=== PATIENT | female | born 1950 | race Caucasian/White ===

== ENCOUNTER 2016-10-28 20:37 | Observation (INO) | payer OTHER ==
[~2016-10-28] VITALS: Ht 160 cm; Wt 59.5 kg
[~2016-10-28 20:37] MED LIST: AMLODIPINE BESYL5 MG PO; ASPIR 8181 M1 PO; ATIVAN0.5 MG PO; B COMPLEX #11 EACH PO; BENZONATATE200 MG PO; CYMBALTA30 MG PO; CYMBALTA60 MG PO; DEXAMETHASONE4 MG PO; LASIX20 MG PO; LORAZEPAM1 MG PO; MEGESTROL ACETA40 MG PO; METOPROLOL SUCC50 MG PO; NEURONTIN100 MG PO; NORCO 5/3251 TABLET PO; NORVASC10 MG PO; PROMETHAZINE-C120 ML PO; ROWEEPRA500 MG PO; TOPROL XL100 MG PO; ULTRAM50 MG PO; VITAMIN B122500 MCG PO; WELLBUTRIN SR150 MG PO; ZOCOR10 MG PO; ZOCOR20 MG PO; ZOFRAN8 MG PO; ZUPLENZ8 MG PO; ZYBAN 150 MG T150 MG PO
[2016-10-28 23:03] LABS: CHLORIDE 100 mEq/L (99-109); HEMATOCRIT 42.6 % (36.0-46.0); MCH 30.7 PG (29.0-34.0); MCHC 34.3 G/DL (30.0-36.0); MCV 89.7 FL (83-99); MEAN PLAT.VOLUME 9.7 uM^3 (9.5-12.4); NRBC (%) 2.4 /100 WBC (0-0); PLATELET COUNT 303 K/uL (156-360); POTASSIUM 4.5 mEq/L (3.7-5.4); RBC DIS.WIDTH-CV 13.4 % (11.8-14.6); RBC DIS.WIDTH-SD 43.7 % (39-53); RED BLOOD COUNT 4.75 M/uL (3.80-5.20); SODIUM 135 mEq/L (136-147); WHITE BLOOD COUNT 1.3 K/uL (4.1-10.2)
[2016-10-28 23:05] LABS: GLUCOSE 211 mg/dL (70-99)
[2016-10-28 23:07] LABS: ANION GAP 18 MEQ/L (2-14); TOTAL BILIRUBIN 1.7 mg/dL (0.0-1.0)
[2016-10-28 23:09] LABS: ALKALINE PHOSPHATASE 99 IU/L (3-129); GFR ESTIMATE (CALCULATED) 48 mL/min/
[2016-10-28 23:10] LABS: UREA NITROGEN (BUN) 24 mg/dL (9-23)
[2016-10-28 23:12] LABS: LIPASE 3 U/L (1.0-51.0)
[2016-10-28 23:41] LABS: TROP-I INTERPRETATION NEGATIVE; TROPONIN-I 0.02 ng/mL (0.0-0.30)
[2016-10-29] MEDS ORDERED: ZOCOR20 MG PO (00:49)
[2016-10-29] MEDS ORDERED: MOVANTIK12.5 MG PO (00:52)
[2016-10-29 02:17] LABS: ADD MIUA? YES; BILIRUBIN NEGATIVE; BLOOD MODERATE; COLOR YELLOW ((YELLOW)); GLUCOSE (STRIP) 50; KETONES NEGATIVE; LEUKOCYTES NEGATIVE; NITRITE NEGATIVE; PROTEIN (STRIP) 30; SPECIFIC GRAVITY 1.008 (1.000-1.030); UROBILINOGEN 0.2 MG/DL (0.2-1.0)
[2016-10-29 02:23] LABS: BACTERIA RARE /HPF; EPITHELIAL CELLS 2+ /HPF; HYALINE CASTS 0-5 /LPF; MUCUS TRACE /LPF; UCUL ADDED? NO; WHITE BLOOD CELLS 0-5 /HPF (0-5)
[2016-10-29 07:23] VITALS: BP 114/71
[2016-10-29 08:36] LABS: ANION GAP 11 MEQ/L (2-14); CHLORIDE 108 MEQ/L (99-109); GFR ESTIMATE (CALCULATED) > 59 mL/min/; GLUCOSE 138 mg/dL (70-99); POTASSIUM 3.8 MEQ/L (3.7-5.4); SAMPLE HEMOLYSIS CHECK 0; SAMPLE ICTERIC CHECK 0; SAMPLE LIPEMIA CHECK 0; SODIUM 136 MEQ/L (136-147); UREA NITROGEN (BUN) 23 mg/dL (9-23)
[2016-10-29 11:40] VITALS: BP 116/64
[2016-10-29] MEDS ORDERED: ZOFRAN4 MG PO (14:20)
== END 2016-10-29 15:56 | disposition home or self-care (01) ==
LOC: EME 20:37 → EDOF 10-29 03:24 → 5WEST 10-29 07:18
PROVIDERS: Emergency Medicine; Nurse Practitioner Adult Health
DX: R11.2 Nausea with vomiting, unspecified (principal); R19.7 Diarrhea, unspecified; E86.0 Dehydration; D72.819 Decreased white blood cell count, unspecified; E87.2 Acidosis; T45.1X5A Adverse effect of antineoplastic and immunosuppressive drugs, initial encounter; C79.31 Secondary malignant neoplasm of brain; Z85.118 Personal history of other malignant neoplasm of bronchus and lung; I10 Essential (primary) hypertension; E78.5 Hyperlipidemia, unspecified; F41.9 Anxiety disorder, unspecified; Z87.891 Personal history of nicotine dependence
CPT/HCPCS: 71010; 80048; 80053; 81003; 83605; 83630; 83690; 84484; 85027; 87040; 87493; 93005; G0378; J1644; J2405; J7030; J8540; S0028

== ENCOUNTER 2016-11-01 08:49 | Inpatient (IN) | payer OTHER ==
[~2016-11-01] VITALS: Ht 160 cm; Wt 63.7 kg
[~2016-11-01 08:49] MED LIST changes: +MOVANTIK12.5 MG PO; +ZOFRAN4 MG PO
[2016-11-01 09:43] LABS: CHLORIDE 98 mEq/L (99-109); SODIUM 131 mEq/L (136-147)
[2016-11-01 09:45] LABS: GLUCOSE 72 mg/dL (70-99)
[2016-11-01 09:46] LABS: ANION GAP 10 MEQ/L (2-14)
[2016-11-01 09:48] LABS: ALKALINE PHOSPHATASE 70 IU/L (3-129); HEMATOCRIT 30.2 % (36.0-46.0); MCH 30.1 PG (29.0-34.0); MCHC 34.4 G/DL (30.0-36.0); MCV 87.3 FL (83-99); RBC DIS.WIDTH-CV 13.4 % (11.8-14.6); TROP-I INTERPRETATION NEGATIVE; TROPONIN-I < 0.01 ng/mL (0.0-0.30)
[2016-11-01 09:49] LABS: GFR ESTIMATE (CALCULATED) > 59 mL/min/
[2016-11-01 09:50] LABS: UREA NITROGEN (BUN) 9 mg/dL (9-23)
[2016-11-01 09:51] LABS: RED BLOOD COUNT 3.46 M/uL (3.80-5.20); WHITE BLOOD COUNT 0.8 K/uL (4.1-10.2)
[2016-11-01 09:54] LABS: TOTAL BILIRUBIN 0.7 mg/dL (0.0-1.0)
[2016-11-01 09:57] LABS: ADD MIUA? YES; BILIRUBIN NEGATIVE; BLOOD MODERATE; COLOR YELLOW ((YELLOW)); GLUCOSE (STRIP) NEGATIVE; KETONES 20; LEUKOCYTES NEGATIVE; NITRITE NEGATIVE; PROTEIN (STRIP) 100; SPECIFIC GRAVITY 1.017 (1.000-1.030); UROBILINOGEN 0.2 MG/DL (0.2-1.0)
[2016-11-01 10:03] LABS: BACTERIA RARE /HPF; CALCIUM OXALATE CRYSTALS 1+ /HPF; EPITHELIAL CELLS 2+ /HPF; GRANULAR CASTS 0-5 /LPF; HYALINE CASTS 0-5 /LPF; MUCUS TRACE /LPF; UCUL ADDED? NO; URIC ACID CRYSTALS 1+ /HPF
[2016-11-01 11:52] LABS: ABS NEUTROPHIL COUNT 0.5; EOSINOPHIL ABS CT 0; INSTRUMENT ABS NEUTROPHIL CT 0.5 K/uL; MEAN PLAT.VOLUME 10.3 uM^3 (9.5-12.4); PLAT.SUFFICIENCY DECREASED; PLATELET COUNT 128 K/uL (156-360)
[2016-11-01] MEDS ORDERED: IMODIUM A-D2 M2 PO (12:24)
[2016-11-01 17:13] LABS: C DIFF TOXIN NEGATIVE (NEGATIVE)
[2016-11-01 17:19] LABS: PROBE CHECK PASS; SPECIMEN PROCESSING CONTROL PASS
[2016-11-01 17:50] VITALS: BP 99/57
[2016-11-02] VITALS (7 sets, daily range): BP systolic 101–115; BP diastolic 59–69
[2016-11-02 06:46] LABS: HEMATOCRIT 30.5 % (36.0-46.0); MCH 30.4 PG (29.0-34.0); MCHC 34.8 G/DL (30.0-36.0); MCV 87.4 FL (83-99); MEAN PLAT.VOLUME 10.4 uM^3 (9.5-12.4); NRBC (%) 1.4 /100 WBC (0-0); PLATELET COUNT 135 K/uL (156-360); RBC DIS.WIDTH-CV 13.9 % (11.8-14.6); RBC DIS.WIDTH-SD 43.3 % (39-53); RED BLOOD COUNT 3.49 M/uL (3.80-5.20); WHITE BLOOD COUNT 2.2 K/uL (4.1-10.2)
[2016-11-02 07:05] LABS: ANION GAP 11 MEQ/L (2-14); CHLORIDE 101 MEQ/L (99-109); GFR ESTIMATE (CALCULATED) > 59 mL/min/; GLUCOSE 100 mg/dL (70-99); POTASSIUM 3.4 MEQ/L (3.7-5.4); SAMPLE HEMOLYSIS CHECK 0; SAMPLE ICTERIC CHECK 0; SAMPLE LIPEMIA CHECK 0; SODIUM 133 MEQ/L (136-147); UREA NITROGEN (BUN) 5 mg/dL (9-23)
[2016-11-03 03:50] VITALS: BP 108/63
[2016-11-03 06:52] LABS: HEMATOCRIT 32.2 % (36.0-46.0); MCH 30.4 PG (29.0-34.0); MCHC 34.8 G/DL (30.0-36.0); MCV 87.3 FL (83-99); MEAN PLAT.VOLUME 10.8 uM^3 (9.5-12.4); NRBC (%) 0.7 /100 WBC (0-0); PLATELET COUNT 152 K/uL (156-360); RBC DIS.WIDTH-CV 14.1 % (11.8-14.6); RBC DIS.WIDTH-SD 44.6 % (39-53); RED BLOOD COUNT 3.69 M/uL (3.80-5.20); WHITE BLOOD COUNT 2.8 K/uL (4.1-10.2)
[2016-11-03 07:12] VITALS: BP 115/63
[2016-11-03 07:19] LABS: ABS NEUTROPHIL COUNT 2.4; ANISOCYTOSIS 1+; BAND NEUTROPHILS 23.9 % (0-8.0); EOSINOPHIL ABS CT 0; INSTRUMENT ABS NEUTROPHIL CT 2.2 K/uL; LYMPHOCYTES 7.1 % (15.0-45.0); MACROCYTES 1+; METAMYELOCYTES 0.9 %; MYELOCYTES 0.9 %; NUCLEATED RBC'S 1.8; PLAT.SUFFICIENCY ADEQUATE; POIKILOCYTOSIS 2+
[2016-11-03 07:21] LABS: ANION GAP 12 MEQ/L (2-14); CHLORIDE 104 MEQ/L (99-109); GFR ESTIMATE (CALCULATED) > 59 mL/min/; GLUCOSE 107 mg/dL (70-99); SAMPLE HEMOLYSIS CHECK 0; SAMPLE ICTERIC CHECK 0; SAMPLE LIPEMIA CHECK 0; SODIUM 136 MEQ/L (136-147); UREA NITROGEN (BUN) 9 mg/dL (9-23)
[2016-11-03 07:25] LABS: POTASSIUM 4.6 MEQ/L (3.7-5.4)
[2016-11-03 16:13] VITALS: BP 110/69
[2016-11-03 22:59] VITALS: BP 111/67
[2016-11-04 07:26] VITALS: BP 125/76
[2016-11-04 16:02] VITALS: BP 127/72
[2016-11-05 00:18] VITALS: BP 110/55
[2016-11-05 07:15] VITALS: BP 111/66
[2016-11-05 09:37] LABS: HEMATOCRIT 33.2 % (36.0-46.0); MCH 29.9 PG (29.0-34.0); MCHC 34.6 G/DL (30.0-36.0); MCV 86.2 FL (83-99); MEAN PLAT.VOLUME 11.3 uM^3 (9.5-12.4); NRBC (%) 7.2 /100 WBC (0-0); PLATELET COUNT 141 K/uL (156-360); RBC DIS.WIDTH-CV 14.8 % (11.8-14.6); RBC DIS.WIDTH-SD 45.8 % (39-53); RED BLOOD COUNT 3.85 M/uL (3.80-5.20); WHITE BLOOD COUNT 2.9 K/uL (4.1-10.2)
[2016-11-05 09:55] LABS: ANION GAP 11 MEQ/L (2-14); CHLORIDE 107 MEQ/L (99-109); GFR ESTIMATE (CALCULATED) > 59 mL/min/; GLUCOSE 105 mg/dL (70-99); POTASSIUM 4.6 MEQ/L (3.7-5.4); SAMPLE HEMOLYSIS CHECK 0; SAMPLE ICTERIC CHECK 0; SAMPLE LIPEMIA CHECK 0; SODIUM 136 MEQ/L (136-147); UREA NITROGEN (BUN) 14 mg/dL (9-23)
[2016-11-05 10:35] LABS: ABS NEUTROPHIL COUNT 2.1; ANISOCYTOSIS 1+; BURR CELLS 2+; EOSINOPHIL ABS CT 0; INSTRUMENT ABS NEUTROPHIL CT 2.3 K/uL; LYMPHOCYTES 2.8 % (15.0-45.0); MACROCYTES 1+; METAMYELOCYTES 9.3 %; MYELOCYTES 5.6 %; NUCLEATED RBC'S 15.9; PLAT.SUFFICIENCY ADEQUATE; PLATELET CLUMPS PRESENT - PLATELET COUNTS APPEARS DECREASED; POIKILOCYTOSIS 3+; SEG.NEUTROPHILS 58.9 % (46.0-76.0); SMUDGE CELLS 5.6
[2016-11-06 00:34] VITALS: BP 86/53
[2016-11-06 08:21] VITALS: BP 82/50
[2016-11-06 09:41] LABS: HEMATOCRIT 31.4 % (36.0-46.0); MCH 30.8 PG (29.0-34.0); MCHC 34.7 G/DL (30.0-36.0); MCV 88.7 FL (83-99); NRBC (%) 25.2 /100 WBC (0-0); RBC DIS.WIDTH-CV 15.2 % (11.8-14.6); RBC DIS.WIDTH-SD 48.7 % (39-53); RED BLOOD COUNT 3.54 M/uL (3.80-5.20); WHITE BLOOD COUNT 1.4 K/uL (4.1-10.2)
[2016-11-06 09:56] LABS: ANION GAP 9 MEQ/L (2-14); CHLORIDE 108 MEQ/L (99-109); GLUCOSE 79 mg/dL (70-99); POTASSIUM 5.1 MEQ/L (3.7-5.4); SAMPLE HEMOLYSIS CHECK 0; SAMPLE ICTERIC CHECK 0; SAMPLE LIPEMIA CHECK 0; SODIUM 136 MEQ/L (136-147)
[2016-11-06 09:57] LABS: GFR ESTIMATE (CALCULATED) 43 mL/min/; UREA NITROGEN (BUN) 28 mg/dL (9-23)
[2016-11-06 10:03] LABS: ABS NEUTROPHIL COUNT 0.6; ANISOCYTOSIS 2+; ATYPICAL LYMPHOCYTE 1.6 %; BAND NEUTROPHILS 7.7 % (0-8.0); BURR CELLS 2+; EOSINOPHIL ABS CT 0; INSTRUMENT ABS NEUTROPHIL CT 1.1 K/uL; LYMPHOCYTES 9.2 % (15.0-45.0); MACROCYTES 2+; MEAN PLAT.VOLUME 12.4 uM^3 (9.5-12.4); METAMYELOCYTES 7.7 %; MYELOCYTES 23.1 %; NUCLEATED RBC'S 36.9; OVALOCYTES 1+; PLAT.SUFFICIENCY DECREASED; POIKILOCYTOSIS 3+; SMUDGE CELLS 1.5
[2016-11-06 11:13] LABS: PLATELET COUNT 82 K/uL (156-360); SEG.NEUTROPHILS 35.3 % (46.0-76.0)
== END 2016-11-06 14:02 | DRG 871 ==
LOC: EME 08:49 → EDOF 11:07 → 5EAST 11:07
PROVIDERS: Emergency Medicine; Internal Medicine
DX: A41.9 Sepsis, unspecified organism (principal); G72.0 Drug-induced myopathy; D70.9 Neutropenia, unspecified; E87.2 Acidosis; C79.31 Secondary malignant neoplasm of brain; J18.9 Pneumonia, unspecified organism; C78.7 Secondary malignant neoplasm of liver and intrahepatic bile duct; E83.51 Hypocalcemia; C34.90 Malignant neoplasm of unspecified part of unspecified bronchus or lung; E78.5 Hyperlipidemia, unspecified; I10 Essential (primary) hypertension; E86.0 Dehydration; E86.1 Hypovolemia; Z51.5 Encounter for palliative care; Z66 Do not resuscitate; E87.6 Hypokalemia; T38.0X5A Adverse effect of glucocorticoids and synthetic analogues, initial encounter; K72.90 Hepatic failure, unspecified without coma; N19 Unspecified kidney failure; R09.02 Hypoxemia; Z87.891 Personal history of nicotine dependence; R19.7 Diarrhea, unspecified; R63.0 Anorexia; Y95 Nosocomial condition; Z92.21 Personal history of antineoplastic chemotherapy; Z92.3 Personal history of irradiation; C79.51 Secondary malignant neoplasm of bone; K52.9 Noninfective gastroenteritis and colitis, unspecified
CPT/HCPCS: 71010; 74177; 80048; 80053; 81003; 82948; 83605; 83630; 84484; 85025; 85025 91; 85027; 87040; 87045; 87046; 87177; 87186; 87493; 87506; 87801; 93005; 94799; 97530 GO; 97530 GP; 99281; 99285; G0378; J0692; J1100; J1644; J1940; J2270; J2405; J3370; J3480; J7030; J7050; J8540; S0028

== ENCOUNTER 2016-11-06 13:30 | Inpatient (IN) | payer OTHER ==
[~2016-11-06 13:30] MED LIST changes: +IMODIUM A-D2 M2 PO
== END 2016-11-06 21:55 | DRG 951 ==
LOC: 5EAST 13:30
DX: Z51.5 Encounter for palliative care (principal); A41.50 Gram-negative sepsis, unspecified; J96.91 Respiratory failure, unspecified with hypoxia; J18.9 Pneumonia, unspecified organism; D70.9 Neutropenia, unspecified; E87.2 Acidosis; C34.90 Malignant neoplasm of unspecified part of unspecified bronchus or lung; C78.7 Secondary malignant neoplasm of liver and intrahepatic bile duct; E78.5 Hyperlipidemia, unspecified; I10 Essential (primary) hypertension; K72.90 Hepatic failure, unspecified without coma; Z66 Do not resuscitate; Z79.899 Other long term (current) drug therapy; R19.7 Diarrhea, unspecified; Y95 Nosocomial condition; Z92.21 Personal history of antineoplastic chemotherapy
CPT/HCPCS: J2270